=== PATIENT | female | born 1945 | race Asian ===

== ENCOUNTER → 2016-06-22 | Outpatient (CLI) | payer MEDICARE, OTHER ==
--- NOTE | 2016-06-22 17:51 | WOMENS IMAGING REPORT ---
EXAM DESCRIPTION: 3D SCREENING MAMMO BILAT COMPLETED DATE/TIME: 06/22/2016 10:59 am REASON FOR STUDY: Z12.31 ROUTINE SCREENING MAMMO COMPARISON: Multiple since 2009 TECHNIQUE: Standard craniocaudal and mediolateral oblique views of each breast recorded using digita l acquisition and breast tomosynthesis. LIMITATIONS: None. FINDINGS: Findings present which are benign by mammographic criteria. No suspicious masses, calcifi cations or architectural distortion. Read with the assistance of CAD. .[facility] - R2 Cenova Version 1.3 .[facility] - R2 Cenova Version 1.3 .[facility] - R2 Cenova Version 2.4 .[facility] [place] - R2 Cenova Version 2.4 .[facility] - R2 [employer] Version 9.2 Benign mammographic findings may include one or more of the following: Smooth masses, popcorn/rim/co arse calcifications, asymmetries, post-procedure changes, and lesions with long-standing stability. BREAST DENSITY: b. There are scattered areas of fibroglandular density. BIRAD: 2 BENIGN FINDING(S) RECOMMENDATION: RECOMMENDATION: ROUTINE SCREENING COMMENT: PATIENT NOTIFIED BY LETTER The [employer] recommends an annual screening mammogram for women aged 40 years or over. Each patient will receive a reminder prior to the anniversary date of her mammogram. The [employer] (ACR) has developed recommendations for screening MRI of the breast s in certain patient populations, to be used in conjunction with mammography. Breast MRI surveillanc e may be appropriate for women with more than 20% lifetime risk of developing breast cancer as deter mined by genetic testing, significant family history of the disease, or history of mantle radiation f or Hodgkins Disease. ACR Practice Guidelines 2008. DBT Technology DBT is a type of tomographic mammography. With conventional mammography, overlapping breast tissue ma y make lesions difficult to detect, even with good compression. DBT uses an x-ray tube that rotates a round the breast, taking images at different angles. These images are then combined to create thin sl ices of the breast that the radiologist can view as a 3D reconstruction. The [employer] unit can perform full-field digital mammograms (2D imaging); or DBT (3D imaging); or both, in a combination mode that quickly performs both the mammogram and the tomosynthesis scan while the breast is still compressed. PQRS 6045F: Fluoroscopic imaging is not utilized for breast tomosynthesis. TECHNICAL DOCUMENTATION: FINDING NUMBER: (1) ASSESSMENT: (1) JOB ID: [id number] [employer]- All Rights Reserved
== END ==
LOC: WI 10:30
PROVIDERS: ATTEND Nurse Practitioner
DX: Z12.31 Encounter for screening mammogram for malignant neoplasm of breast (principal)
CPT/HCPCS: 77063; G0202; 77067

== ENCOUNTER 2016-08-01 14:57 | Observation (INO) | payer MEDICARE, OTHER ==
--- NOTE | 2016-08-01 15:21 | ER Document Report ---
ED Medical Screen (RME) - General Stated Complaint: CHEST PRESSURE Notes: 71 yo female c/o mid chest pressure since this morning. intermittant. "feels funny in neck". slight shortness of breath. no nausea. + HTN, + DM, + high cholesterol. followed by Dr Lorenzo for tachycardia. no previous hx/o TX TRAVEL OUTSIDE OF THE [place] IN LAST 30 DAYS: No - Related Data Allergies/Adverse Reactions: iodine [Iodine] Allergy (Unknown, Verified 10/01/14 14:22) Seafood Allergy (Unknown, Uncoded 10/01/14 14:22) Past Medical History - Past Medical History Cardiac Medical History: Reports: Hx Hypercholesterolemia, Hx Hypertension Denies: Hx Heart Attack Pulmonary Medical History: Denies: Hx Asthma Neurological Medical History: Denies: Hx Cerebrovascular Accident, Hx Seizures Endocrine Medical History: Reports: Hx Diabetes Mellitus Type 2 GI Medical History: Denies: Hx Hepatitis, Hx Hiatal Hernia, Hx Ulcer Infectious Medical History: Denies: Hx Hepatitis, Hx MRSA Past Surgical History: Reports: Hx Cholecystectomy. Denies: Hx Mastectomy, Hx Open Heart Surgery, Hx Pacemaker - Immunizations Immunizations up to date: Yes Hx Diphtheria, Pertussis, Tetanus Vaccination: Yes Physical Exam - Vital signs Vitals: Temp Pulse Resp BP Pulse Ox 98.0 F 70 16 160/78 H 96 08/01/16 15:17 08/01/16 15:17 08/01/16 15:17 08/01/16 15:17 08/01/16 15:17 Course - Vital Signs Vital signs: Temp Pulse Resp BP Pulse Ox 98.0 F 70 16 160/78 H 96 08/01/16 15:17 08/01/16 15:17 08/01/16 15:17 08/01/16 15:17 08/01/16 15:17
[2016-08-01 16:06] LABS: ABSOLUTE EOSINOPHILS # (AUTO) 0.1 10^3/uL (0.0-0.6); ABSOLUTE MONOCYTES (AUTO) 0.6 10^3/uL (0.1-1.4); ABSOLUTE NEUT (AUTO) 3.6 10^3/uL (1.7-8.2); BASOPHILS % (AUTO) 0.4 % (0-2); EOSINOPHILS % (AUTO) 1.3 % (0-6); HEMATOCRIT 43.4 % (36.0-47.0); HEMOGLOBIN 14.7 g/dL (12.0-15.5); HGB HCT DIFFERENCE 0.7; LYMPHOCYTES % (AUTO) 40.9 % (13-45); MEAN CORPUSCULAR HEMOGLOBIN 28.1 pg (27.0-33.4); MEAN CORPUSCULAR HGB CONC 33.8 g/dL (32.0-36.0); MEAN CORPUSCULAR VOLUME 83 fl (80-97); MONOCYTES % (AUTO) 8.5 % (3-13); RED BLOOD COUNT 5.21 10^6/uL (3.72-5.28); RED CELL DISTRIBUTION WIDTH 13.8 % (11.5-14.0); SEGMENTED NEUTROPHILS % (AUTO) 48.9 % (42-78); WHITE BLOOD COUNT 7.3 10^3/uL (4.0-10.5)
[2016-08-01 16:15] LABS: APPEARANCE,URINE CLEAR; BILIRUBIN,URINE NEGATIVE (NEGATIVE); GLUCOSE, URINE 50 mg/dL (NEGATIVE); KETONES,URINE NEGATIVE (NEGATIVE); LEUKOCYTE ESTERASE,URINE NEGATIVE (NEGATIVE); NITRITE,URINE NEGATIVE (NEGATIVE); PROTEIN,URINE NEGATIVE (NEGATIVE); UROBILINOGEN,URINE NEGATIVE mg/dL (<2.0)
[2016-08-01 16:27] LABS: ALANINE AMINOTRANSFERASE 38 U/L (9-52); ALBUMIN 4.4 g/dL (3.5-5.0); ALKALINE PHOSPHATASE 142 U/L (38-126); ANION GAP 12 (5-19); ASPARTATE AMINO TRANSFERASE 26 U/L (14-36); BILIRUBIN,TOTAL 0.5 mg/dL (0.2-1.3); BLOOD UREA NITROGEN 21 mg/dL (7-20); CALCIUM 9.6 mg/dL (8.4-10.2); CARBON DIOXIDE 25 mmol/L (22-30); CHLORIDE 104 mmol/L (98-107); CREATINE KINASE 56 U/L (30-135); CREATININE RESULT 0.75 mg/dL (0.52-1.25); GLUCOSE 218 mg/dL (75-110); POTASSIUM 3.9 mmol/L (3.6-5.0); SODIUM 141.2 mmol/L (137-145); TOTAL PROTEIN 7.3 g/dL (6.3-8.2)
[2016-08-01 16:43] LABS: CREATINE KINASE MB 0.74 ng/mL (<4.55); TROPONIN I < 0.012 ng/mL
[2016-08-01] MEDS ORDERED: ASPIRIN 81 MG TABLET, CHEWABLE PO ONE (17:15)
--- NOTE | 2016-08-01 17:20 | ER Document Report ---
[id number], Relative - Daughter TRAVEL OUTSIDE OF THE [place] IN LAST 30 DAYS: No - HPI Patient complains to provider of: Chest pain Quality of pain: Intermittent, Pressure Chest pain radiation location: Left jaw, Right jaw Chest pain precipitating factors: sleeping Cardiac risk factors: Diabetes, Hypertension Associated symptoms: Shortness of breath. denies: Diaphoresis <TOMMIE CORREA - Last Filed: 08/01/16 20:39> <CHELE STILES - Last Filed: 08/06/16 13:16> - General Chief Complaint: Chest Pain Stated Complaint: CHEST PRESSURE Notes: Patient is a 71-year-old female presenting to the emergency department chief complaint chest pressure onset this morning at approximately 6 AM. Patient states that the first episode lasted approximately 30 minutes, and the pressures been intermittent throughout the day. Patient states the pressure woke her up from her sleep. Patient took her blood pressure upon waking up which was very high. Patient admits to mild shortness of breath, but denies diaphoresis or abdominal pain. Patient states that her jaws feel a bit uncomfortable. Patient took a baby aspirin at home and denies any chest pain at this time. Patient has a history of hypertension, diabetes, hyperlipidemia, and A-fib. (TOMMIE CORREA) - Related Data Allergies/Adverse Reactions: iodine [Iodine] Allergy (Unknown, Verified 10/01/14 14:22) Seafood Allergy (Unknown, Uncoded 10/01/14 14:22) Home Medications: Current Home Medications Aspirin [Aspirin EC] 81 mg PO DAILY 08/01/16 [History] Atorvastatin Calcium [Lipitor 10 mg Tablet] 10 mg PO DAILY 08/01/16 [History] Calcium Carbonate/Vitamin D3 [Caltrate 600 Plus D3 Tablet] 1 tab PO BID [History] Cholecalciferol (Vitamin D3) [Vitamin D3] 2,000 unit PO DAILY 08/01/16 [History] Diltiazem HCl [Diltiazem ER] 2 cap PO DAILY 08/01/16 [History] Hydrochlorothiazide [Hydrodiuril 12.5 mg Capsule] 12.5 mg PO DAILY 08/01/16 [ History] Metformin HCl [Metformin HCl ER] 500 mg PO QPM 08/01/16 [History] Metoprolol Succinate [Toprol XL 100 mg Tablet] 100 mg PO DAILY 08/01/16 [History ] Multivitamin [Multivitamins] 1 tab PO DAILY 08/01/16 [History] [place]-3/Dha/Epa/Fish Oil [Fish Oil 500 mg Softgel] 1,500 mg PO BID 08/01/16 [ History] Ubidecarenone [Co Q-10] 200 mg PO DAILY 08/01/16 [History] Valsartan [Diovan] 320 mg PO DAILY 08/01/16 [History] Past Medical History - General Information source: Patient, Relative - daughter, [facility] Records - Social History Smoking Status: Unknown if Ever Smoked Chew tobacco use (# tins/day): No Frequency of alcohol use: None Drug Abuse: None Family History: Reviewed & Not Pertinent Patient has suicidal ideation: No Patient has homicidal ideation: No - Past Medical History Cardiac Medical History: Reports: Hx Hypercholesterolemia, Hx Hypertension Denies: Hx Heart Attack Pulmonary Medical History: Denies: Hx Asthma Neurological Medical History: Denies: Hx Cerebrovascular Accident, Hx Seizures Endocrine Medical History: Reports: Hx Diabetes Mellitus Type 2 Renal/ Medical History: Denies: Hx Peritoneal Dialysis GI Medical History: Denies: Hx Hepatitis, Hx Hiatal Hernia, Hx Ulcer Infectious Medical History: Denies: Hx Hepatitis, Hx MRSA Past Surgical History: Reports: Hx Cholecystectomy. Denies: Hx Mastectomy, Hx Open Heart Surgery, Hx Pacemaker - Immunizations Immunizations up to date: Yes Hx Diphtheria, Pertussis, Tetanus Vaccination: Yes <TOMMIE CORREA - Last Filed: 08/01/16 20:39> Review of Systems - Review of Systems Constitutional: No symptoms reported. denies: Diaphoresis EENT: No symptoms reported Cardiovascular: See HPI, Chest pain - Pressure Respiratory: See HPI, Short of breath - mild Gastrointestinal: No symptoms reported Genitourinary: No symptoms reported Female Genitourinary: No symptoms reported Musculoskeletal: No symptoms reported Skin: No symptoms reported Hematologic/Lymphatic: No symptoms reported Neurological/Psychological: No symptoms reported -: Yes All other systems reviewed and negative <TOMMIE CORREA - Last Filed: 08/01/16 20:39> Physical Exam - Vital signs Interpretation: Hypertensive - General General appearance: Alert - HEENT Head: Normocephalic, Atraumatic Eyes: Normal Pupils: PERRL - Respiratory Respiratory status: No respiratory distress Chest status: Nontender Breath sounds: Normal Chest palpation: Normal - Cardiovascular Rhythm: Regular Heart sounds: Normal auscultation Murmur: No - Abdominal Inspection: Normal Distension: No distension Bowel sounds: Normal Tenderness: Nontender Organomegaly: No organomegaly - Back Back: Normal, Nontender - Extremities General upper extremity: Normal inspection, Nontender, Normal color, Normal ROM , Normal temperature General lower extremity: Normal inspection, Nontender, Normal color, Normal ROM , Normal temperature - Neurological Neuro grossly intact: Yes Cognition: Normal Manuel Coma Scale Eye Opening: Spontaneous Manuel Coma Scale Verbal: Oriented Manuel Coma Scale Motor: Obeys Commands Manuel Coma Scale Total: 15 Speech: Normal - Psychological Associated symptoms: Normal affect, Normal mood - Skin Skin Temperature: Warm Skin Moisture: Dry Skin Color: Normal <TOMMIE CORREA - Last Filed: 08/01/16 20:39> Course - Laboratory Result Diagrams: 08/01/16 15:25 08/01/16 15:25 <TOMMIE CORREA - Last Filed: 08/01/16 20:39> - Laboratory Result Diagrams: 08/01/16 15:25 08/01/16 15:25 <CHELE STILES - Last Filed: 08/06/16 13:16> - Re-evaluation Re-evalutation: 08/01/16 17:40 I personally performed the services described in the documentation, reviewed and edited the documentation which was dictated to my scribe in my presence, and it accurately records my words and actions. Patient with a history of high blood pressure diabetes hyperlipidemia comes in with chest pressure onset this morning relieved with aspirin. She has multiple risk factors for cardiac disease and has seen Dr. Encarnacion a wafer cleaner in the past but is never had a heart catheterization stents or been told she had an [place]. Chest pain is relieved here given 3 baby aspirin EKG is nonacute chest x- ray is negative she is currently chest pain-free spoke with the hospitalist admit patient to hospital further evaluation. 08/01/16 17:42 (CHELE STILES) - Vital Signs Vital signs: Temp Pulse Resp BP Pulse Ox 97.8 F 65 20 131/58 H 12 L 08/02/16 10:17 08/02/16 10:17 08/02/16 10:17 08/02/16 10:17 08/02/16 10:17 (TOMMIE CORREA) (CHELE STILES) - Laboratory Laboratory results interpreted by me: 08/01/16 08/01/16 08/01/16 15:25 15:25 15:25 BUN 21 H Glucose 218 H Hemoglobin A1c % 6.7 H Alkaline Phosphatase 142 H Urine Glucose (UA) 50 H Urine Blood SMALL H (TOMMIE CORREA) (CHELE STILES) Critical Care Note - Critical Care Note Total time excluding time spent on procedures (mins): 35 <CHELE STILES - Last Filed: 08/06/16 13:16> Discharge <TOMMIE CORREA - Last Filed: 08/01/16 20:39> - Discharge Admitting Provider: Hospitalist Unit Admitted: Telemetry <CHELE STILES - Last Filed: 08/06/16 13:16> - Discharge Clinical Impression: Chest pain Qualifiers: Chest pain type: unspecified Qualified Code(s): R07.9 - Chest pain, unspecified Condition: Stable Disposition: ADMITTED OBSERVATION Scribe Documentation - Scribe Written by Scribe:: Tommie Correa 08/01/2016 1720 acting as scribe for :: Aric <TOMMIE CORREA - Last Filed: 08/01/16 20:39>
[2016-08-01] MEDS ORDERED: ACETAMINOPHEN 325 MG TABLET PO PRN (18:26)
[2016-08-01] MEDS ORDERED: ONDANSETRON HCL INJ/PF 4 MG/2 ML SDV IV PRN (18:26)
[2016-08-01] MEDS ORDERED: INSULIN REG, HUMAN 100 UNIT/ML 3 ML VIAL (PYX) SUBCUT PRN (18:32)
[2016-08-01] MEDS ORDERED: GLUCAGON,HUMAN RECOMB 1 MG INJ IM PRN (18:32)
[2016-08-01] MEDS ORDERED: DEXTROSE 40% GEL 15 GM TUBE PO PRN ×2 (18:32)
[2016-08-01] MEDS ORDERED: DEXTROSE 50%-WATER 25 GM/50 ML DISP.SYRIN IV PRN ×2 (18:32)
--- NOTE | 2016-08-01 18:47 | PDOC H&P ---
History of Present Illness Admission Date/PCP: 08/01/16 18:11 PARKER TALBERT NP Patient complains of: Chest pain History of Present Illness: DAO VIEYRA is a 71 year old female, with hypertension, hypercholesterolemia , type II diabetes mellitus percent as read on and off chest pain of several hours duration. The pain is characterized as pressure on the precordium. There is associated palpitation but no dizziness or lightheadedness. There is no PND or orthopnea. No cough or pleurisy or chest congestion. No nausea or vomiting. No shortness of breath. No diaphoresis. The patient went to the emergency room for evaluation, given aspirin and chest pain resolved. Patient referred for observation. Past Medical History Past Medical History: Medication reconciliation pending verification from the patient's pharmacist. Cardiac Medical History: Reports: Hyperlipidema, Hypertension Denies: Myocardial Infarction Pulmonary Medical History: Denies: Asthma Neurological Medical History: Denies: Seizures Endocrine Medical History: Reports: Diabetes Mellitus Type 2 GI Medical History: Denies: Hepatitis, Hiatal Hernia Hematology: Denies: Anemia, Sickle Cell Disease Infectious Medical History: Denies: Methicillin-Resistant Staph Aureus Past Surgical History Past Surgical History: Reports: Cholecystectomy, Other - Rotator cuff surgery on the left Denies: Amputation, Mastectomy, Pacemaker Social History Information Source: Patient Smoking Status: Never Smoker Frequency of Alcohol Use: None Hx Recreational Drug Use: No Drugs: None Family History Family History: Other - Heart disease Parental Family History Reviewed: Yes Children Family History Reviewed: Yes Sibling(s) Family History Reviewed.: Yes Medication/Allergy Allergies/Adverse Reactions: iodine [Iodine] Allergy (Unknown, Verified 10/01/14 14:22) Seafood Allergy (Unknown, Uncoded 10/01/14 14:22) Review of Systems Constitutional: ABSENT: chills, fever(s), headache(s), weight gain, weight loss Eyes: ABSENT: visual disturbances Ears: ABSENT: hearing changes Nose, Mouth, and Throat: ABSENT: mouth pain, sore throat Cardiovascular: PRESENT: chest pain, palpitations. ABSENT: dyspnea on exertion , edema, orthropnea Respiratory: ABSENT: cough, dyspnea, hemoptysis Gastrointestinal: ABSENT: abdominal pain, coffee ground emesis, constipation, diarrhea, hematemesis, hematochezia, melena, nausea, vomiting Genitourinary: ABSENT: dysuria, hematuria Musculoskeletal: ABSENT: joint swelling Integumentary: ABSENT: pruritus, rash, wounds Neurological: ABSENT: abnormal gait, abnormal speech, confusion, dizziness, focal weakness, syncope Psychiatric: ABSENT: anxiety, depression, homidical ideation, suicidal ideation Endocrine: ABSENT: cold intolerance, heat intolerance, polydipsia, polyuria Hematologic/Lymphatic: ABSENT: easy bleeding, easy bruising Physical Exam Vital Signs: Temp Pulse Resp BP Pulse Ox 98.0 F 70 15 120/64 93 08/01/16 15:17 08/01/16 15:17 08/01/16 17:01 08/01/16 17:01 08/01/16 17:01 General appearance: PRESENT: no acute distress, cooperative, other - Overweight Head exam: PRESENT: atraumatic, normocephalic Eye exam: PRESENT: conjunctiva pink, EOMI, PERRLA. ABSENT: scleral icterus Ear exam: PRESENT: normal external ear exam. ABSENT: drainage Mouth exam: PRESENT: moist, neck supple, tongue midline Neck exam: ABSENT: carotid bruit, JVD, lymphadenopathy, thyromegaly Respiratory exam: PRESENT: clear to auscultation [place]by. ABSENT: rales, rhonchi, wheezes Cardiovascular exam: PRESENT: RRR, +S1, +S2. ABSENT: diastolic murmur, gallop, rubs, systolic murmur Pulses: PRESENT: normal dorsalis pedis pul Vascular exam: PRESENT: normal capillary refill GI/Abdominal exam: PRESENT: normal bowel sounds, soft. ABSENT: distended, guarding, mass, organolmegaly, rebound, tenderness Rectal exam: PRESENT: deferred Extremities exam: PRESENT: full ROM, other - Homans sign negative. ABSENT: calf tenderness, clubbing, pedal edema Neurological exam: PRESENT: alert, awake, oriented to person, oriented to place , oriented to time, oriented to situation Psychiatric exam: PRESENT: appropriate affect, normal mood. ABSENT: homicidal ideation, suicidal ideation Skin exam: PRESENT: dry, intact, warm. ABSENT: cyanosis, rash Results Impressions: Chest X-Ray 08/01/16 15:21 IMPRESSION: NO SIGNIFICANT RADIOGRAPHIC FINDING IN THE CHEST. Assessment & Plan - Diagnosis (1) Chest pain Qualifiers: Chest pain type: unspecified Qualified Code(s): R07.9 - Chest pain, unspecified Is this a current diagnosis for this admission?: Yes (2) Hypertension Qualifiers: Hypertension type: essential hypertension Qualified Code(s): I10 - Essential (primary) hypertension (3) Hyperlipidemia Qualifiers: Hyperlipidemia type: unspecified Qualified Code(s): E78.5 - Hyperlipidemia, unspecified Is this a current diagnosis for this admission?: Yes (4) Diabetes mellitus type 2 in obese Is this a current diagnosis for this admission?: Yes - Plan Summary Plan Summary: Patient will be admitted to observation. Patient will be on supplemental oxygen and aspirin. DVT prophylaxis with Lovenox will be placed. We will serially obtain cardiac enzymes 3. If negative patient can be discharged home with outpatient stress test with Dr. Lorenzo. I would obtain a d-dimer. Patient will be on sliding scale insulin. I will also obtain hemoglobin A1c and lipid panel. Further testing depends on the initial evaluation as outlined above. 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 She opted to have a stress test on outpatient basis with Dr. Lorenzo. We will arrange and scheduled her to have one next week
--- NOTE | 2016-08-01 21:45 | EKG REPORT ---
SEVERITY:- ABNORMAL ECG - SINUS RHYTHM CONSIDER LEFT VENTRICULAR HYPERTROPHY : Confirmed by: John Mendez 01-Aug-2016 21:43:32
[2016-08-01 22:18] LABS: CREATINE KINASE MB 0.67 ng/mL (<4.55)
[2016-08-01 22:20] LABS: TROPONIN I < 0.012 ng/mL
[2016-08-02 04:08] LABS: CHOLESTEROL 127.53 mg/dL (0-200); Direct HDL 38 mg/dL (>40); TRIGLYCERIDES 127 mg/dL (<150)
[2016-08-02 04:21] LABS: DIRECT LDL 59 mg/dL (<100)
[2016-08-02 04:23] LABS: CREATINE KINASE MB 0.66 ng/mL (<4.55)
[2016-08-02 04:25] LABS: TROPONIN I < 0.012 ng/mL
[2016-08-02] MEDS ORDERED: LANSOPRAZOLE 30 MG TAB.RAP.DR PO SCH (06:00)
[2016-08-02] MEDS ORDERED: ENOXAPARIN SODIUM INJ 40 MG/0.4 ML DISP.SYRIN SUBCUT SCH (08:00)
[2016-08-02] MEDS ORDERED: (PENDING PHARMACY ID) (Valsartan [Diovan] 320 MG) PO SCH (10:00)
[2016-08-02] MEDS ORDERED: ASPIRIN 81 MG TABLET, CHEWABLE PO SCH (10:00)
[2016-08-02] MEDS ORDERED: ATORVASTATIN CALCIUM 10 MG TABLET PO SCH (10:00)
[2016-08-02] MEDS ORDERED: METOPROLOL SUCCINATE 50 MG TAB.SR.24H PO SCH (10:00)
[2016-08-02] MEDS ORDERED: HYDROCHLOROTHIAZIDE 12.5 MG CAPSULE PO SCH (10:00)
[2016-08-02] MEDS ORDERED: DILTIAZEM HCL PO SCH (10:00)
[2016-08-02] MEDS ORDERED: VALSARTAN 160 MG TABLET PO SCH (10:00)
[2016-08-02] MEDS ORDERED: DOCUSATE SODIUM 100 MG CAPSULE PO SCH (10:00)
[2016-08-02] MEDS ORDERED: DILTIAZEM HCL 180 MG CAPSULE.CR PO SCH (10:00)
[2016-08-02 10:20] VITALS: BP 131/58
[2016-08-02] MEDS ORDERED: (PENDING PHARMACY ID) (Metformin Hcl [Metformin Hcl Er] 500 MG) PO SCH (18:00)
--- NOTE | 2016-08-03 20:29 | PDOC DISCHARGE SUMMARY ---
General - Admit/Disc Date/PCP Admission Date/Primary Care Provider: 08/01/16 18:26 PARKER TALBERT NP Discharge Date: 08/03/16 - Discharge Diagnosis (1) Anxiety Is this a current diagnosis for this admission?: Yes (2) Chest pain Is this a current diagnosis for this admission?: Yes (3) Diabetes mellitus type 2 in obese Is this a current diagnosis for this admission?: Yes (4) Hyperlipidemia Is this a current diagnosis for this admission?: Yes (5) Hypertension Is this a current diagnosis for this admission?: Yes (6) Obesity (BMI 30.0-34.9) Is this a current diagnosis for this admission?: Yes - Additional Information Resuscitation Status: Full Code Discharge Diet: Cardiac - low-fat low-salt, Diabetic - no concentrated sweets Discharge Activity: Activity As Tolerated Home Medications: Aspirin [Aspirin EC] 81 mg PO DAILY 08/01/16 Atorvastatin Calcium [Lipitor 10 mg Tablet] 10 mg PO DAILY 08/01/16 Calcium Carbonate/Vitamin D3 [Caltrate 600 Plus D3 Tablet] 1 tab PO BID Cholecalciferol (Vitamin D3) [Vitamin D3] 2,000 unit PO DAILY 08/01/16 Diltiazem HCl [Diltiazem ER] 2 cap PO DAILY 08/01/16 Hydrochlorothiazide [Hydrodiuril 12.5 mg Capsule] 12.5 mg PO DAILY 08/01/16 Metformin HCl [Metformin HCl ER] 500 mg PO QPM 08/01/16 Metoprolol Succinate [Toprol XL 100 mg Tablet] 100 mg PO DAILY 08/01/16 Multivitamin [Multivitamins] 1 tab PO DAILY 08/01/16 [place]-3/Dha/Epa/Fish Oil [Fish Oil 500 mg Softgel] 1,500 mg PO BID 08/01/16 Ubidecarenone [Co Q-10] 200 mg PO DAILY 08/01/16 Valsartan [Diovan] 320 mg PO DAILY 08/01/16 Omeprazole Magnesium [Prilosec Otc] 20 mg PO DAILY #30 tablet. 08/02/16 History of Present Illness History of Present Illness: DAO VIEYRA is a 71 year old femalewith hypertension, hypercholesterolemia, type II diabetes mellitus percent as read on and off chest pain of several hours duration. The pain is characterized as pressure on the precordium. There is associated palpitation but no dizziness or lightheadedness. There is no PND or orthopnea. No cough or pleurisy or chest congestion. No nausea or vomiting. No shortness of breath. No diaphoresis. The patient went to the emergency room for evaluation, given aspirin and chest pain resolved. Patient referred for observation. Hospital Course Hospital Course: Patient was placed in observation and ruled out for acute coronary syndrome. 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 Patient admitted and began having some tearful episodes of anxiety in her life. She is advised to follow-up with her primary care physician for treatment of her anxiety/depression. This is likely source of her chest pain. Physical Exam Vital Signs: Temp Pulse Resp BP Pulse Ox 97.8 F 65 20 131/58 H 12 L 08/02/16 10:17 08/02/16 10:17 08/02/16 10:17 08/02/16 10:08/02/16 10:17 Intake & Output 08/02/16 08/03/16 08/04/16 06:59 06:59 06:59 Intake Total 100 Balance 100 Weight 74.8 kg Exam: General: Awake alert and oriented x3, no acute respiratory distress HEENT: AT/NC, PERRL, EOMI, oropharynx is moist, pink, no scleral icterus, no conjunctival injection Neck: No JVD, trachea midline Chest: Clear to auscultation bilaterally, no wheezes rhonchi or rales CV: Regular rate and rhythm, normal S1 and S2, no murmur, rub, or gallop Abdomen: Soft, nontender to palpation, nondistended, active bowel sounds; no rebound, rigidity, or guarding Extremities: No cyanosis, clubbing or edema Neuro: Cranial nerves II through XII are grossly intact without focal deficits; awake alert and oriented x3 Psych: Tearful Results Laboratory Results: 08/01/16 08/01/16 08/02/16 21:38 21:38 03:37 Creatine Kinase 47 41 CK-MB (CK-2) 0.67 Troponin I < 0.012 08/02/16 03:37 Creatine Kinase CK-MB (CK-2) 0.66 Troponin I < 0.012 Impressions: Chest X-Ray 08/01/16 15:21 IMPRESSION: NO SIGNIFICANT RADIOGRAPHIC FINDING IN THE CHEST. Qualifiers PATEINT BEING DISCHARGED WITH ANY OF THE FOLLOWING DIAGNOSIS?: No Plan Time Spent: Less than 30 Minutes
== END 2016-08-02 12:21 | disposition home or self-care (01) ==
LOC: ER 14:57 → EH 18:11 → UNDOADMOB 18:11 → EH 18:26 → 4S 20:52
PROVIDERS: ADMIT Internal Medicine; ATTEND Internal Medicine
DX: R07.9 Chest pain, unspecified (principal); E11.9 Type 2 diabetes mellitus without complications; F41.9 Anxiety disorder, unspecified; E78.5 Hyperlipidemia, unspecified; I10 Essential (primary) hypertension; E66.9 Obesity, unspecified; Z68.32 Body mass index [BMI] 32.0-32.9, adult
CPT/HCPCS: 93005; 99291; 36415 ×2; 82553 ×2; 82962 ×2; 82550 ×2; 85025; 80053; 81001; 84484 ×2; 83036; 85379; 80061; 71020; 93010; G0378 ×3; A9270 ×8; J3490

== ENCOUNTER → 2016-09-03 | Outpatient (CLI) | payer MEDICARE, OTHER ==
[2016-09-03 11:31] LABS: ALANINE AMINOTRANSFERASE 38 U/L (9-52); ALBUMIN 4.2 g/dL (3.5-5.0); ALKALINE PHOSPHATASE 98 U/L (38-126); ASPARTATE AMINO TRANSFERASE 21 U/L (14-36); BILIRUBIN,DIRECT 0.2 mg/dL (0.0-0.4); BILIRUBIN,TOTAL 0.4 mg/dL (0.2-1.3); CHOLESTEROL 137.18 mg/dL (0-200); Direct HDL 44 mg/dL (>40); TRIGLYCERIDES 124 mg/dL (<150)
[2016-09-03 11:34] LABS: ANION GAP 12 (5-19); BLOOD UREA NITROGEN 20 mg/dL (7-20); CALCIUM 9.8 mg/dL (8.4-10.2); CARBON DIOXIDE 25 mmol/L (22-30); CHLORIDE 108 mmol/L (98-107); CREATININE RESULT 0.55 mg/dL (0.52-1.25); GLUCOSE 111 mg/dL (75-110); POTASSIUM 4.1 mmol/L (3.6-5.0); SODIUM 145.2 mmol/L (137-145)
[2016-09-03 11:42] LABS: DIRECT LDL 60 mg/dL (<100)
== END ==
LOC: OD 10:12
PROVIDERS: ATTEND Internal Medicine Cardiovascular Disease
DX: E78.00 Pure hypercholesterolemia, unspecified (principal); Z79.899 Other long term (current) drug therapy
CPT/HCPCS: 36415; 80048; 80061; 80076; 84443

== ENCOUNTER → 2016-10-04 | Outpatient (CLI) | payer MEDICARE, OTHER | LOC: RAD 08:44 | PROVIDERS: ATTEND Nurse Practitioner Family | DX: R31.9 Hematuria, unspecified (principal) | CPT/HCPCS: 74178 ==